=== PATIENT | male | born 1950 | race Caucasian/White ===

== ENCOUNTER 2018-04-15 09:43 | Day surgery (SDC) | payer MEDICARE ==
[2018-04-11 08:28] VITALS: BMI 30.5
--- NOTE | 2018-04-14 13:11 | HP ---
HISTORY OF PRESENT ILLNESS: Mr. Don is a pleasant 67-year-old man presented today for evaluation of severe left upper extremity C5 and C6 pains with associated hand numbness since around May of 2017. He has had an epidural steroid injection with Dr. Cedeño which has helped for only a day or so at a time. He does admit to dropping items if he is not concentrating on holding them. He denies an y right upper extremity symptoms. MRI on disk from [facility] reveals severe foraminal stenosis bilaterally at C4-5 and severe left-sided foraminal stenosis C5-C6. He also has moderate to severe central canal stenosis at both levels. PAST MEDICAL HISTORY: Significant for unspecified kidney problems. CURRENT MEDICATIONS: Unassessed. PAST SURGICAL HISTORY: Nasal septoplasty, lumbar disk surgery, bilateral shoulder surgeries, hernior rhaphy, right hip replacement. ALLERGIES: No known drug allergies. PHYSICAL EXAMINATION: PSYCHIATRIC: Patient is alert and oriented x3. NEUROLOGIC: Gait is normal, no ataxia. EXTREMITIES: Upper extremity motor exam is normal. He has a negative Spurling's maneuver bilaterall y. ASSESSMENT: Cervical radiculopathy. PLAN: Dr. Pinon met with the patient, reviewed imaging and advocated for C4-C6 ACDF. He explained t o the patient the risks, benefits, and alternatives to the procedure. The patient expressed understa nding and would like to move forward with surgery as discussed. I do believe the patient is mentally competent and capable of making medical decisions for himself. We will move forward with surgery as planned.
[2018-04-15] MEDS ORDERED: CEFAZOLIN 2 GM/50 ML BAG ONE ×2 (10:28→16:04)
[2018-04-15] MEDS ORDERED: Thrombin 5000 UNITS/5 ML VIAL ONE (11:36)
[2018-04-15] MEDS ORDERED: Fentanyl 100 MCG/2 ML VIAL ONE ×2 (12:19→14:19)
[2018-04-15] MEDS ORDERED: Tamsulosin HCl 0.4 MG CAP ONE (14:18)
[2018-04-15] MEDS ORDERED: HYDROcodone/Acetaminophen 5/325 mg Tablet ONE (15:52)
--- NOTE | 2018-04-15 18:52 | OP ---
DATE OF SERVICE: 04/15/2018 SURGEON: Jake Pinon M.D. SUSTAINABILITY COMMUNICATOR: Devne Laguerre PA-C INDICATION: Pain. DIAGNOSIS: Cervical radiculopathy. PROCEDURES: Anterior cervical discectomy and fusion, C4-C6. ANESTHESIA: General. TECHNIQUE: The patient was brought into the operating room and placed under general anesthesia. He was placed on the table in supine position. A transverse incision was planned over the lateral aspec t of the neck on the right. After prepping and draping and after an appropriate operative pause, the incision was created. The underlying platysma muscles were identified and incised. A blunt tissue plane anterior to the sternocleidomastoid muscle was used to gain access to the prevertebral space. Self-retaining retractors were placed. After confirming the appropriate level with C-arm fluoroscopy , annulotomies were performed at C4-C5 and C5-C6 disk spaces, both under distraction. After removing disk material as well as anterior and posterior osteophytes, 6 and 7-mm lordotic PEEK cage packed wi th allograft and autograft material was placed within the interbody space. We then fashioned the dante te to the front of the spine and secured with a total of 6 screws. Midline and lateral structures we re inspected and found to be free from significant trauma. The wound was irrigated. Hemostasis was maintained throughout. The wound was then closed in anatomic layers and a pressure dressing was appl ied. There were no known procedural complications.
== END 2018-04-15 17:24 | disposition home or self-care (01) ==
LOC: SDC 09:43
PROVIDERS: ATTEND Neurological Surgery
PROC: 0RG20A0 Fusion of 2 or more Cervical Vertebral Joints with Interbody Fusion Device, Anterior Approach, Anterior Column, Open Approach (ICD-10-PCS; principal; 2018-04-15)
PROC: 0RG2070 Fusion of 2 or more Cervical Vertebral Joints with Autologous Tissue Substitute, Anterior Approach, Anterior Column, Open Approach (ICD-10-PCS; 2018-04-15)
PROC: 0RT30ZZ Resection of Cervical Vertebral Disc, Open Approach (ICD-10-PCS; 2018-04-15)
DX: M54.12 Radiculopathy, cervical region (principal); M48.061 Spinal stenosis, lumbar region without neurogenic claudication; Z79.1 Long term (current) use of non-steroidal anti-inflammatories (NSAID); Z79.899 Other long term (current) drug therapy; Z96.641 Presence of right artificial hip joint; Z98.890 Other specified postprocedural states
CPT/HCPCS: 76001; 96374; C1713; C1776; J3010

== ENCOUNTER 2019-10-29 08:28 | Outpatient (CLI) | payer MEDICARE ==
[2019-10-29 09:34] LABS: Estimated GFR-MDRD - POC Greater than 90
--- NOTE | 2019-10-29 15:38 | MRI ---
MRI OF THE LUMBAR SPINE WITH AND WITHOUT CONTRAST: 10/29/19 INDICATION: 69-year-old male with chronic back pain with referral of pain into both legs. This is worst on the le ft lower extremity where there is also some radiation into the left inguinal region that began in Jun. TECHNIQUE: Multiplanar and multisequence MR images were obtained in a lumbar spine with and without contrast uti lizing 20 mL of Multihance. No radiographic or MR comparisons are available. FINDINGS: The conus is seen to terminate at approximately the T12-L1 vertebral level. There is very minimal anterior translation of L4 and L5 which is likely degenerative. There is multil evel congenital narrowing of the spinal canal with slight prominence of the posterior epidural fat. The visualized aspects of the retroperitoneum and periventricular soft tissues appear within normal l imits. There is postprocedural change most consistent with a left hemilaminotomy at L5-S1. There is a broad based disc bulge at L5-S1 with moderate left and mild right facet joint degenerative change and loss of disc space height inducing mild right and moderate left neural foraminal narrowing. The broad base d bulge and facet hypertrophy does encroach upon the left lateral recess induce moderate narrowing of the left lateral recess. There is no definite impingement of the traversing left S1 nerve root. Late ral recess narrowing is most severe on image 48 of series 6 and image 15 of series 12. At L4-5, there is a broad based disc with moderate facet joint degenerative change, ligamentum flavum hypertrophy and slight prominence of the epidural fat inducing moderate central canal narrowing. The re is also loss of disc space height in addition to the degenerative changes at this level inducing m ild to moderate bilateral neural foraminal narrowing. At L3-4, there is a broad based bulge with moderate facet joint degenerative change, prominence of th e epidural fat and ligamentum flavum hypertrophy inducing mild to moderate central canal narrowing wi th mild to moderate right and mild left neural foraminal narrowing. At L2-3, there is a broad based bulge with a superimposed central disc protrusion, facet hypertrophy and ligamentum flavum hypertrophy inducing moderate central canal narrowing. The facet hypertrophy an d disc bulge induce mild right and moderate left neural foraminal narrowing. At L1-2, there is a broad based disc osteophyte complex and facet hypertrophy but no appreciable cent ral canal or neural foraminal narrowing. At T12-L1, there is a mild broad based bulge but no appreciable central canal or neural foraminal patricia rowing. There are moderately prominent superior end plate Schmorl's nodes involving L4, L3, and L2. The postcontrast images demonstrate no definite area of normal contrast enhancement. IMPRESSION: Moderate to severe spondylosis of the lumbar spine with multilevel central canal and neural foraminal narrowing. POS: BH
== END 2019-10-29 08:29 | disposition home or self-care (01) ==
LOC: SCSMRI 08:28
PROVIDERS: ATTEND Anesthesiology
DX: M54.17 Radiculopathy, lumbosacral region (principal); M47.816 Spondylosis without myelopathy or radiculopathy, lumbar region; M48.061 Spinal stenosis, lumbar region without neurogenic claudication
CPT/HCPCS: 72158; 82565

== ENCOUNTER 2020-05-26 06:35 | Outpatient (CLI) | payer MEDICARE ==
[2020-05-26 10:38] LABS: Hemoglobin 14.2 g/dL (14.0-18.0); Mean Corpuscular HGB CONC 31.9 G/DL (32.0-36.0); Mean Corpuscular Hemoglobin 30.4 PG (27.0-33.0); Mean Corpuscular Volume 95.3 fl (80.0-100.0); Mean Platelet Volume 10.5 fl (7.4-10.4); Platelet Count 193 10x3/uL (130-400); RBC Distribution Width 12.6 % (11.5-14.5); Red Blood Cell (RBC) Count 4.67 10x6/uL (4.40-5.80); White Blood Cell (WBC) Count 6.2 10x3/uL (4.5-11.0)
[2020-05-26 10:53] LABS: INR-International Normal Ratio 1.1; Prothrombin Time 11.1 sec (9.5-12.1)
[2020-05-26 11:28] LABS: Anion Gap 14 mmol/L (10-20); BUN (Urea Nitrogen) 17 mg/dL (8.4-25.7); Calc. Creatinine Clearance 0 mL/min (70-130); Calcium 8.7 mg/dL (7.8-10.44); Carbon Dioxide 24 mmol/L (23-31); Chloride 106 mmol/L (98-107); Glucose 82 mg/dL (80-115); Potassium 4.3 mmol/L (3.5-5.1); Sodium 140 mmol/L (136-145)
[2020-05-26 11:52] LABS: Bilirubin Neg (Negative); Blood, Urine 10 (Negative); Clarity Clear (Clear); Glucose, Urine (Dipstick) Normal (Negative); Ketone, Urine Negative (Negative); Leukocyte Negative (Negative); Nitrite Negative (Negative); Protein, Urine (Dipstick) Negative (Neg-Trace); Urobilinogen Normal mg/dL (Less than 2)
[2020-05-26 12:04] LABS: Bacteria/HPF Rare-Few HPF (None Seen); RBC/HPF 0-3 HPF (0-3); Squamous Epithelial 0-3 HPF (0-3); WBC/HPF 0-3 HPF (0-3)
[2020-05-26 18:33] LABS: SARS-CoV-2 MS2 Positive; SARS-CoV-2 N Gene Negative; SARS-CoV-2 S Gene Negative; SARS-CoV-2 by NAA Not Detected (NotDetected); SARS-CoV-2 orf1ab Negative
--- NOTE | 2020-05-26 20:33 | EKG ---
Test Reason : Blood Pressure : / mmHG Vent. Rate : 062 BPM Atrial Rate : 062 BPM P-R Int : 168 ms QRS Dur : 156 ms QT Int : 424 ms P-R-T Axes : 048 -13 023 degrees QTc Int : 430 ms Normal sinus rhythm Right bundle branch block Abnormal ECG No previous ECGs available Confirmed by DR. Karissa CAMILO MD ([id number]) on 05/26/2020 8:33:28 PM Referred By: SELENE Confirmed By:DR. Karissa CAMILO MD
== END 2020-05-26 06:36 | disposition home or self-care (01) ==
LOC: LABBT 06:35
PROVIDERS: ATTEND Orthopaedic Surgery
DX: Z01.818 Encounter for other preprocedural examination (principal); Z20.828 Contact with and (suspected) exposure to other viral communicable diseases; M16.12 Unilateral primary osteoarthritis, left hip
CPT/HCPCS: 80048; 81001; 85027; 85610; 87081; 93005; U0003; 87635; 93010

== ENCOUNTER 2020-05-26 10:00 | Inpatient (IN) | payer MEDICARE ==
[2020-05-26 11:54] VITALS: BMI 27.1
[2020-06-01] MEDS ORDERED: Tranexamic Acid 1,000 MG/10 ML VIAL ONE (06:05)
[2020-06-01] MEDS ORDERED: Sodium Chloride 0.9% 100 ML ONE (06:05)
[2020-06-01] MEDS ORDERED: Vancomycin 1.5 GRAM/300 ML BAG ONE (06:05)
[2020-06-01] MEDS ORDERED: Fentanyl 100 MCG/2 ML VIAL ONE ×3 (06:29→07:51)
[2020-06-01] MEDS ORDERED: Midazolam HCl 2 mg/2 ml Vial ONE (06:29)
[2020-06-01] MEDS ORDERED: Ondansetron PF 4 MG/2 ML Vial IVP PRN ×2 (06:58→07:30)
[2020-06-01] MEDS ORDERED: Promethazine HCl 25 MG/ML VIAL IM PRN ×3 (06:58→08:11)
[2020-06-01] MEDS ORDERED: diphenhydrAMINE 25 MG CAP PO PRN ×2 (06:58→07:30)
[2020-06-01] MEDS ORDERED: Acetaminophen 325 MG TAB PO PRN (06:58)
[2020-06-01] MEDS ORDERED: HYDROcodone/Acetaminophen 10/325 mg Tablet PO PRN ×2 (06:58)
[2020-06-01] MEDS ORDERED: Zolpidem Tartrate 5 MG TAB PO PRN ×2 (06:58→07:30)
[2020-06-01] MEDS ORDERED: Bupivacaine 0.25% HCL 30 ML VIAL ONE (07:10)
[2020-06-01] MEDS ORDERED: Famotidine/PF 20 mg/2ml Vial ONE (07:11)
[2020-06-01] MEDS ORDERED: HYDROcodone/Acetaminophen 5/325 mg Tablet PO PRN ×2 (07:30)
[2020-06-01] MEDS ORDERED: Bupivacaine 0.25% 10 ML VIAL EPIDURAL PRN (07:30)
[2020-06-01] MEDS ORDERED: diphenhydrAMINE 50 MG/ML VIAL IM PRN (07:30)
[2020-06-01] MEDS ORDERED: Promethazine HCl 25 MG SUPP PR PRN (07:30)
[2020-06-01] MEDS ORDERED: fentaNYL Citrate/PF 500 MCG, Bupivacaine 10 ML in Sodium Chloride 0.9% 80 ML EPIDURAL SCH (07:30)
[2020-06-01] MEDS ORDERED: Hydrocerin (Eucerin) Cream 120 gm Jar TOP PRN (07:30)
[2020-06-01] MEDS ORDERED: traMADol HCl 50 MG TAB PO PRN ×2 (07:30)
[2020-06-01] MEDS ORDERED: Naloxone HCl 0.4 mg/ml Vial IVP PRN (07:30)
[2020-06-01] MEDS ORDERED: Naloxone HCl 0.4 mg/ml Vial IV PRN (07:30)
[2020-06-01] MEDS ORDERED: diphenhydrAMINE 50 MG/ML VIAL IVP PRN (07:30)
[2020-06-01] MEDS ORDERED: PACU-Morphine 4MG/ML VIAL SLOW IVP PRN (08:11)
[2020-06-01] MEDS ORDERED: Promethazine HCl 25 MG/ML VIAL SLOW IVP PRN (08:11)
[2020-06-01] MEDS ORDERED: Non-Formulary Item 1 EACH (Celecoxib [Celecoxib] 200 MG Capsule) PO SCH (09:00)
[2020-06-01] MEDS ORDERED: Non-Formulary Item 1 EACH (Cetirizine Hcl [All Day Allergy] 10 MG Capsule) PO SCH (09:00)
--- NOTE | 2020-06-01 09:11 | OP ---
DATE OF PROCEDURE: 06/01/2020 TITLE OF PROCEDURE: Left total hip arthroplasty using a Catalina Accolade size 6 femur with standard ceramic 36 head, 52-mm Trident II cup with a 36 X3 liner. CHEMISTRY LAB INSTRUCTOR: Emelina Bravo PA-C BLOOD LOSS: Less than 200. SPECIMEN: None. DRAINS: None. COMPLICATIONS: None. The surveyor's assistant/co-surgeon was present through the entire procedure and was responsible for providing exposure, tissue retraction and any necessary limb or tissue manipulation required to obtain necessary reduction or hardware placement. The surveyor's assistant/co-surgeon also provided bleeding control, tissue closure, and suturing in conjunction with the primary surgeon. PROCEDURE IN DETAIL: After informed consent was obtained in the preoperative holding area, the patient was taken to the operative suite where general anesthesia was induced. The patient was then positioned in the lateral decubitus position. The hip was then prepped and draped in usual sterile fashion. The patient received preoperative antibiotics. Prior to incision, time-out was called and all members of the surgical team agreed upon site, surgeon, and patient. After this, a longitudinal incision was made directly over the trochanter, noted by palpation extending 2 fingerbreadths above and below the trochanter. The deeper subcutaneous layer was undermined with Bovie electrocautery. The iliotibial band was encountered and incised sharply and the plane below this was developed bluntly. A Charnley retractor was placed to hold this opened. The lateral aspect of the trochanter and the abductor muscles were encountered and then reflected anteriorly off the trochanter using Bovie electrocautery. Once this was completed, the anterior capsule was then encountered and identified and copious capsulotomy was carried out, exposing the femoral neck and head. Dislocation maneuver was then performed and an in situ provisional neck cut was then made using the oscillating saw. Attention was then turned to acetabular preparation and sequential reaming was carried out up to the appropriate diameter. A trial was then malleted into place with good firm resistance and no pullout. The permanent acetabular shell was then malleted squarely into place, as was the appropriate liner. Once completed, the wound was copiously irrigated and attention was then turned to femoral preparation. Flexion and external rotation were performed of the exposed thigh and femoral elevators were then placed at the proximal aspect of the wound. Canal finder was used to establish the length of the canal and sequential reaming was carried out, followed by broaching. Once the appropriate stability was established with the trial broaches with flexion, extension and rotational stability, we did trial with neutral and 2 mm offset incremental necks. Once the appropriate size was decided upon, with good stability noted with flexion, extension, internal and external rotation and shuck being negative, we removed the femoral trial broach and malletted into place the permanent prosthesis with good firm fit, which was also stable to rotation. Again, the hip felt very stable to flexion, extension, internal and external rotation. Leg lengths appeared near anatomic clinically and we were quite happy with prosthesis placement. Copious irrigation was then carried out through the entirety of the wound. Primary closure of the abductors was accomplished with interrupted #2 Vicryl [id number] stitches and the IT band was then closed with interrupted #2 Vicryl, oversewn with a #2 running barbed Quill stitch. Subcutaneous fascia was closed with running barbed Quill stitch and a subcuticular Monocryl barbed Quill stitch was used for skin closure and augmented with skin cement. A sterile dressing was applied. The procedure was terminated without any complication. All counts were correct. The patient was awakened in the operative suite and taken to the recovery room in stable condition. Job ID: [id number]
--- NOTE | 2020-06-01 09:41 | RAD ---
XR Hip Lt 2-3 View History: Postop total hip Comparison: Radiograph April 05, 2020 Findings: Satisfactory appearance left hip arthroplasty. Expected postoperative gas and edema. Impression: Satisfactory postoperative appearance.
[2020-06-01] MEDS ORDERED: PROPOFOL 200 MG/20 ML VIAL ONE (10:05)
[2020-06-01] MEDS ORDERED: Ondansetron PF 4 MG/2 ML Vial ONE (10:05)
[2020-06-01] MEDS ORDERED: Rocuronium Bromide 10 MG/ML (10ML VIAL) ONE (10:05)
[2020-06-01] MEDS ORDERED: Lidocaine 1% PF 5 ML VIAL ONE (10:05)
[2020-06-01] MEDS ORDERED: ePHEDrine 50 MG/ML VIAL ONE (10:05)
[2020-06-01] MEDS ORDERED: Lidocaine 1.5% w/Epi 1:200K 30 ML VIAL (Epid Use) ONE (10:05)
[2020-06-01] MEDS ORDERED: Dexamethasone 20 MG/5 ML VIAL ONE (10:05)
[2020-06-01] MEDS ORDERED: Glycopyrrolate 0.2 MG/ML 5 ML SYRINGE ONE ×2 (10:05)
[2020-06-01] MEDS: Aspirin 81 mg Enteric Coated Tablet PO SCH ×2 (14:46→20:42)
[2020-06-01] MEDS: CeleCOXIB 100 MG CAP PO SCH ×2 (14:46→20:40)
[2020-06-01] MEDS: Senokot S 8.6-50 MG TAB PO SCH ×2 (14:47→20:42)
[2020-06-01] MEDS: Ferrous Gluconate 324 MG TAB PO SCH ×2 (14:47→20:42)
[2020-06-01] MEDS: Multivitamin W/ Minerals 1 TAB PO SCH (14:47)
[2020-06-01] MEDS: Pregabalin 50 MG CAP PO SCH ×2 (14:47→20:41)
[2020-06-01] MEDS: Loratadine 10 MG TAB PO SCH (14:47)
[2020-06-01] MEDS: Ketorolac Tromethamine 30 MG/ML VIAL IVP SCH ×3 (14:48→23:44)
[2020-06-01] MEDS: Tamsulosin HCl 0.4 MG CAP PO SCH (14:48)
[2020-06-01] MEDS: CEFAZOLIN 2 GM in Premix Bag 1 BAG IVPB SCH ×2 (14:52→22:49)
[2020-06-02] MEDS: Ketorolac Tromethamine 30 MG/ML VIAL IVP SCH ×4 (05:50→23:20)
[2020-06-02 07:06] LABS: Hemoglobin 13.1 g/dL (14.0-18.0); Mean Corpuscular HGB CONC 32.3 g/dL (32.0-36.0); Mean Corpuscular Hemoglobin 30.5 pg (27.0-31.0); Mean Corpuscular Volume 94.5 fL (78.0-98.0); Mean Platelet Volume 8.7 fL (7.4-10.4); Platelet Count 185 thou/uL (130-400); RBC Distribution Width 11.9 % (11.5-14.5); Red Blood Cell (RBC) Count 4.29 mill/uL (4.70-6.10); White Blood Cell (WBC) Count 12.8 thou/uL (4.8-10.8)
[2020-06-02] MEDS: Aspirin 81 mg Enteric Coated Tablet PO SCH ×2 (09:13→20:46)
[2020-06-02] MEDS: CeleCOXIB 100 MG CAP PO SCH ×2 (09:13→20:43)
[2020-06-02] MEDS: Ferrous Gluconate 324 MG TAB PO SCH ×2 (09:13→20:44)
[2020-06-02] MEDS: Senokot S 8.6-50 MG TAB PO SCH ×2 (09:13→21:33)
[2020-06-02] MEDS: Multivitamin W/ Minerals 1 TAB PO SCH (09:13)
[2020-06-02] MEDS: Pregabalin 50 MG CAP PO SCH ×2 (09:14→20:45)
[2020-06-02] MEDS: Loratadine 10 MG TAB PO SCH (09:14)
[2020-06-02] MEDS: Tamsulosin HCl 0.4 MG CAP PO SCH (09:14)
[2020-06-03] MEDS: Ketorolac Tromethamine 30 MG/ML VIAL IVP SCH (05:02)
[2020-06-03] MEDS: Ferrous Gluconate 324 MG TAB PO SCH (08:48)
[2020-06-03] MEDS: Aspirin 81 mg Enteric Coated Tablet PO SCH (08:48)
[2020-06-03] MEDS: Senokot S 8.6-50 MG TAB PO SCH (08:48)
[2020-06-03] MEDS: Pregabalin 50 MG CAP PO SCH (08:48)
[2020-06-03] MEDS: Multivitamin W/ Minerals 1 TAB PO SCH (08:48)
[2020-06-03] MEDS: Tamsulosin HCl 0.4 MG CAP PO SCH (08:48)
[2020-06-03] MEDS: Loratadine 10 MG TAB PO SCH (08:48)
[2020-06-03] MEDS: CeleCOXIB 100 MG CAP PO SCH (08:49)
[2020-06-03 13:21] VITALS: BP 141/84; TEMP 98.3
--- NOTE | 2020-06-07 01:35 | PQF ---
CLINICAL DOCUMENTATION CLARIFICATION FORM: Dear : Edmund Schrader MD Date / Time: 06/07/2020 Please exercise your independent, professional judgment in responding to the clarification form. Clinical indicators are provided on the bottom of this form for your review Please check appropriate box(es): [ ] Protein Calorie Malnutrition: [ ] Mild [ ] Moderate [ ] Severe [ ] Other Malnutrition (please specify) [ ] Underweight without malnutrition [ ] Cachexia [ ] Other diagnosis (Please specify if any) [ ] Unable to determine In addition, please specify: Present on Admission (POA): [ ] Yes [ ] No [ ] Unable to determine Physician Signature: Date/Time: For continuity of documentation, please document condition throughout progress notes and discharge summary. Thank You. To be completed by CDI/Coding staff for physician review: Present Clinical Indicators - Signs / Symptoms / Labs Results and Location in Medical Record [x] Malnutrition, Failure to Thrive, Cachexia Moderate malnutrition food & nutrition services assessment on 06/02 [x] BMI of 27.1 food & nutrition services assessment on 06/02 Two or More of the Following ASPEN Criteria: [ ] Unintentional Insufficient Energy Intake [x] 17% Weight Loss x 4 months food & nutrition services assessment on 06/02 [x] Mild temporalis muscle wasting food & nutrition services assessment on 06/02 [x] buccal fat pad wasting food & nutrition services assessment on 06/02 [ ] Localized/Generalized Fluid Accumulation [ ] Diminished Handgrip Strength Present Risk Factors Results and Location in Medical Record [x] Aged person 69 yrs food & nutrition services assessment on 06/02 [ ] Inability to consume adequate caloric intake [ ] Chronic illness cancer, cirrhosis [ ] Medication [ ] PEG tube [ ] Short gut syndrome Present Treatments Results and Location in Medical Record [x] Dietary consult Consult on 06/02 [ ] Nutritional supplements [ ] TPN / tube feedings [ ] Assistance with feeding [ ] Appetite stimulant - medication CDS/Electrical And Instrument Engineer Signature: AAS Phone #: Date/Time: 06/07/2020 Moderate Malnutrition (in acute illness) ? Energy Intake: <75% of estimated energy requirement for > 7 days ? Weight Loss: 1-2%/1 week; 5%/ 1 month; 7.5%/3 months ? Other: mild body fat loss; mild muscle mass loss; mild fluid accumulation; Severe Malnutrition (in acute illness) ? Energy Intake: ? 50% of estimated energy requirement for ? 5 days ? Weight Loss: >2%/1 week; >5%/1 month; >7.5%/3 months ? 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 Energy Intake: <75% of estimated energy requirement for ?1 month ? Weight Loss: 5%/1 month; 7.5%/3 months; 10%/6 months; 20%/1 year ? Other: mild body fat loss; mild muscle mass loss; mild fluid accumulation Severe Malnutrition (in chronic illness) ? Energy Intake: ?75% of estimated energy requirement for ?1 month ? Weight Loss: >5%/1 month; >7.5%/3 months; >10%/6 months; >20%/1 year ? 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
--- NOTE | 2020-06-07 11:02 | DIS ---
DATE OF ADMISSION: 06/01/2020 DATE OF DISCHARGE: 06/03/2020 This is Derek Langford PA-C dictating a report for Edmund Schrader MD. PREOPERATIVE DIAGNOSES: Left hip degenerative joint disease/osteoarthritis. POSTOPERATIVE DIAGNOSES: Left hip degenerative joint disease/osteoarthritis. PROCEDURE PERFORMED: The patient underwent left total hip replacement. HOSPITAL COURSE: Hospital stay was unremarkable. The patient was admitted to [place] [address], where he worked with staff, Physical Therapy, Occupational Therapy, and progressed quite well. By postop day 2, he was ready to discharge home. DISCHARGE CONDITION: Good/stable. DISPOSITION: Home with family. FOLLOWUP: Would be in 2 to 4 weeks or sooner if there are problems and/or concerns. DISCHARGE MEDICATIONS: Given with usage instructions. Job ID: [id number]
== END 2020-06-03 14:24 | disposition home or self-care (01) | DRG 470 ==
LOC: SJJU 06-01 05:42 → SURG B 06-01 14:14
PROVIDERS: ADMIT Orthopaedic Surgery; ATTEND Orthopaedic Surgery
PROC: 0SRB049 Replacement of Left Hip Joint with Ceramic on Polyethylene Synthetic Substitute, Cemented, Open Approach (ICD-10-PCS; principal; 2020-06-01)
DX: M16.12 Unilateral primary osteoarthritis, left hip (principal); Z98.890 Other specified postprocedural states
CPT/HCPCS: 36415; 85027; J0690; J1100; J1885; J2001; J2250; J2405; J2704; J3010; J3370; J3490; S0020; S0028

== ENCOUNTER 2021-03-18 07:53 | Outpatient (CLI) | payer MEDICARE ==
[2021-03-18 10:05] LABS: Anion Gap 13 mmol/L (10-20); BUN (Urea Nitrogen) 17 mg/dL (8.4-25.7); Calc. Creatinine Clearance 0 mL/min (70-130); Carbon Dioxide 26 mmol/L (23-31); Chloride 105 mmol/L (98-107); Glucose 88 mg/dL (80-115); Potassium 4.2 mmol/L (3.5-5.1); Sodium 140 mmol/L (136-145)
[2021-03-18 18:13] LABS: SARS-CoV-2 PCR by NAA Not Detected (NotDetected)
== END 2021-03-18 07:54 | disposition home or self-care (01) ==
LOC: LABBT 07:53
PROVIDERS: ATTEND Neurological Surgery
DX: Z01.812 Encounter for preprocedural laboratory examination (principal); M54.16 Radiculopathy, lumbar region; M48.061 Spinal stenosis, lumbar region without neurogenic claudication; Z20.822 Contact with and (suspected) exposure to COVID-19
CPT/HCPCS: 80048; U0003; U0005

== ENCOUNTER 2021-03-23 06:43 | Day surgery (SDC) | payer MEDICARE ==
[2021-03-22 14:27] VITALS: BMI 28.5
[2021-03-23] MEDS ORDERED: Thrombin 5000 UNITS/5 ML VIAL ONE (06:49)
[2021-03-23] MEDS ORDERED: Bupivacaine PF 0.5% 30 ML VIAL ONE (06:49)
[2021-03-23] MEDS ORDERED: EPINEPHrine 1 MG/ML AMP ONE (06:49)
[2021-03-23] MEDS ORDERED: Fentanyl 100 MCG/2 ML VIAL ONE ×2 (07:04→09:40)
[2021-03-23] MEDS ORDERED: SUGAMMADEX SODIUM 200 MG/2 ML VIAL ONE (07:05)
[2021-03-23] MEDS ORDERED: Famotidine/PF 20 mg/2ml Vial ONE (07:05)
[2021-03-23] MEDS ORDERED: ceFAZolin 2 GM/DEX 5% 100 ML BAG ONE ×2 (07:17→12:03)
[2021-03-23] MEDS ORDERED: Midazolam HCl 2 mg/2 ml Vial ONE (07:29)
[2021-03-23] MEDS ORDERED: Metoclopramide HCl 10 MG/2 ML VIAL ONE (07:47)
[2021-03-23] MEDS ORDERED: Ondansetron PF 4 MG/2 ML Vial ONE (07:47)
[2021-03-23] MEDS ORDERED: Dexamethasone 20 MG/5 ML VIAL ONE (07:47)
[2021-03-23] MEDS ORDERED: Rocuronium Bromide 10 MG/ML (10ML VIAL) ONE (07:47)
[2021-03-23] MEDS ORDERED: Ketorolac Tromethamine 30 MG/ML VIAL ONE (07:47)
[2021-03-23] MEDS ORDERED: Lidocaine 1% PF 5 ML VIAL ONE (07:47)
[2021-03-23] MEDS ORDERED: PROPOFOL 200 MG/20 ML VIAL ONE (07:47)
[2021-03-23] MEDS ORDERED: PHENYLEPHRINE-NS 100 MCG/ML 10 ML SYRINGE ONE (07:47)
[2021-03-23] MEDS ORDERED: Tamsulosin HCl 0.4 MG CAP ONE (10:19)
== END 2021-03-23 13:45 | disposition home or self-care (01) ==
LOC: SDC 06:43
PROVIDERS: ATTEND Neurological Surgery
PROC: 01NB0ZZ Release Lumbar Nerve, Open Approach (ICD-10-PCS; principal; 2021-03-23)
DX: M48.062 Spinal stenosis, lumbar region with neurogenic claudication (principal); M51.16 Intervertebral disc disorders with radiculopathy, lumbar region; J30.2 Other seasonal allergic rhinitis; F17.290 Nicotine dependence, other tobacco product, uncomplicated; Z79.899 Other long term (current) drug therapy; Z98.1 Arthrodesis status
CPT/HCPCS: 76000; J0171; J1100; J1885; J2250; J2405; J2704; J2765; J3010; S0020; S0028

== ENCOUNTER 2021-08-19 10:55 | Outpatient (CLI) | payer MEDICARE ==
[2021-08-19 11:51] LABS: Bilirubin Neg (Negative); Blood, Urine Negative (Negative); Clarity Clear (Clear); Glucose, Urine (Dipstick) Normal (Negative); Ketone, Urine Negative (Negative); Leukocyte Negative (Negative); Nitrite Negative (Negative); Protein, Urine (Dipstick) Negative (Neg-Trace); Urobilinogen Normal mg/dL (Less than 2); pH, Urine 6.5 (5.0-9.0)
[2021-08-19 12:05] LABS: PTT 25.5 sec (22.0-33.0); Prothrombin Time 10.7 sec (9.5-12.1)
[2021-08-19 12:06] LABS: Bacteria/HPF None Seen HPF (None Seen); RBC/HPF None Seen HPF (0-3); Squamous Epithelial None Seen HPF (0-3); WBC/HPF None Seen HPF (0-3)
[2021-08-19 12:09] LABS: Anion Gap 14 mmol/L (10-20); BUN (Urea Nitrogen) 20 mg/dL (8.4-25.7); Calc. Creatinine Clearance 0 mL/min (70-130); Calcium 9.5 mg/dL (7.8-10.44); Carbon Dioxide 25 mmol/L (23-31); Chloride 107 mmol/L (98-107); Glucose 104 mg/dL (80-115); Potassium 4.3 mmol/L (3.5-5.1); Sodium 142 mmol/L (136-145)
[2021-08-19 12:21] LABS: Hemoglobin 15.2 g/dL (13.5-17.5); Mean Corpuscular HGB CONC 33.7 g/dL (32.0-36.0); Mean Corpuscular Hemoglobin 30.3 pg (27.0-33.0); Mean Platelet Volume 10.8 fl (7.4-10.4); Platelet Count 181 10x3/uL (150-450); RBC Distribution Width 13.1 % (11.5-14.5); Red Blood Cell (RBC) Count 5.01 10x6/uL (4.32-5.72); White Blood Cell (WBC) Count 5.6 10x3/uL (3.5-10.5)
[2021-08-19 23:47] LABS: SARS-CoV-2 PCR by NAA Not Detected (NotDetected)
== END 2021-08-19 10:56 | disposition home or self-care (01) ==
LOC: LABBT 10:55
PROVIDERS: ATTEND Urology
DX: Z01.818 Encounter for other preprocedural examination (principal); N40.1 Benign prostatic hyperplasia with lower urinary tract symptoms; M54.16 Radiculopathy, lumbar region; M54.12 Radiculopathy, cervical region; R35.0 Frequency of micturition; Z12.5 Encounter for screening for malignant neoplasm of prostate; R31.29 Other microscopic hematuria; N52.9 Male erectile dysfunction, unspecified; Z20.822 Contact with and (suspected) exposure to COVID-19
CPT/HCPCS: 80048; 81001; 85027; 85610; 85730; 87086; 93005; U0003; U0005; 93010

== ENCOUNTER 2025-02-16 08:59 | Outpatient (CLI) | payer MEDICARE ==
[2025-02-16 09:38] LABS: #Basophils 0.04 10x3/uL (0.0-0.2); #Eosinophils 0.22 10x3/uL (0.0-0.7); #Monocytes 0.66 10x3/uL (0.11-0.59); #Neutrophils 3.26 10x3/uL (1.40-6.50); %Basophils 0.7 % (0.0-1.0); %Eosinophils 4.0 % (0.0-10.0); %Lymphocytes 24.6 % (21.0-51.0); %Monocytes 11.9 % (0.0-10.0); %Neutrophils 58.6 % (42.0-75.0); Hematocrit 45.2 % (42.0-52.0); Hemoglobin 14.5 g/dL (14.0-18.0); Mean Corpuscular Hemoglobin 30.3 pg (27.0-31.0); Mean Corpuscular Volume 94.4 fL (78.0-98.0); Platelet Count 177 10x3/uL (130-400); Red Blood Cell (RBC) Count 4.79 mill/uL (4.70-6.10); White Blood Cell (WBC) Count 5.56 10x3/uL (4.8-10.8)
[2025-02-16 09:49] LABS: Anion Gap 15 mmol/L (10-20); BUN (Urea Nitrogen) 15 mg/dL (8.4-25.7); Calc. Creatinine Clearance 0 mL/min (70-130); Calcium 8.8 mg/dL (7.8-10.44); Carbon Dioxide 27 mmol/L (23-31); Chloride 104 mmol/L (98-107); Glucose 93 mg/dL (83-110); Potassium 4.5 mmol/L (3.5-5.1); Sodium 141 mmol/L (136-145)
== END 2025-02-16 09:00 | disposition home or self-care (01) ==
LOC: LABBT 08:59
PROVIDERS: ATTEND Orthopaedic Surgery
DX: Z01.818 Encounter for other preprocedural examination (principal); M75.101 Unspecified rotator cuff tear or rupture of right shoulder, not specified as traumatic
CPT/HCPCS: 80048; 85025; 93005; 93010